=== PATIENT | female | born 1975 | race Caucasian/White ===

== ENCOUNTER 2019-06-14 10:57 | Emergency (ER) | payer OTHER ==
[~2019-06-14] VITALS: Ht 161.3 cm; Wt 63.0 kg
--- NOTE | 2019-06-14 11:02 | NUR ---
PATIENT AMBULATED WITH STEADY GAIT TO BED 2.
[2019-06-14 11:09] VITALS: BP 113/75
--- NOTE | 2019-06-14 11:24 | NUR ---
C/O PROD COUGH X 1 WK WITH CHEST CONGESTION. ITCHINESS TO FACE X 3 DAYS. SAW PCP YESTERDAY WITH DX OF BRONCHITIS AND RX ALBUTEROL, PROMETHAZINE, CLARITIN, SUDOGEST, AZITHROMYCIN. STATES SOB, SPO2 100% RA AT THIS TIME. PAIN 3/10 TO BACK WHEN COUGHING. VSS; BEDRAILS UPX1; ERMD TO EVALUATE PT. HX- ankylosing spondylitis ALL- PCN
--- NOTE | 2019-06-14 11:26 | NUR ---
DR. HUERTA EVALUATING PT AT BEDSIDE.
[2019-06-14] MEDS ORDERED: OSELTAMIVIR PHOSPHATE 75 MG CAP PO ONE (12:40)
[2019-06-14] MEDS ORDERED: PROMETH/CODEINE 6.25-10MG/5ML 5 ML UDC PO ONE (12:40)
[2019-06-14 13:07] VITALS: BP 114/49
--- NOTE | 2019-06-14 13:07 | NUR ---
Patient discharged with v/s stable. Written and verbal after care instructions given and explained. Patient alert, oriented and verbalized understanding of instructions. Ambulatory with steady gait. All questions addressed prior to discharge. ID band removed. Patient advised to follow up with PMD. Rx of TAMIFLU given. Patient educated on indication of medication including possible reaction and side effects. Opportunity to ask questions provided and answered. SON ACCOMPANYING PT WILL DRIVE PT HOME.
== END 2019-06-14 13:07 | disposition home or self-care (01) ==
LOC: MED 10:57
DX: J10.1 Influenza due to other identified influenza virus with other respiratory manifestations (principal); Z88.0 Allergy status to penicillin
CPT/HCPCS: 71045; 87804; 99284; Q0092